=== PATIENT | male | born 1990 | race Caucasian/White ===

== ENCOUNTER 2020-11-19 10:46 | Emergency (ER) | payer OTHER ==
[2020-11-19 10:51] VITALS: BP 137/101
[2020-11-19] MEDS ORDERED: ORPHENADRINE 60 MG/2 ML (NORFLEX) AMP (ED ONLY) IM ONE (11:00)
[2020-11-19] MEDS ORDERED: KETOROLAC 60 MG/2 ML VIAL IM ONE (11:00)
--- NOTE | 2020-11-19 11:15 | Diagnostic Imaging Report ---
Indication: Left-sided low back pain with left leg radiculopathy. Comparison: None. Discussion: Three views lumbosacral spine were obtained. Mild degenerative disc disease noted at L5-S1. Alignment is anatomic. No fracture or dislocation. Soft tissues are unremarkable. Sacroiliac joints are maintained. Impression: 1. Mild L5-S1 degenerative disc disease. Dictated by: Dictated on workstation # [id number]
--- NOTE | 2020-11-19 11:16 | ED Back Pain ---
General Chief Complaint: Back Problems Stated Complaint: LEFT HIP/LEG PAIN | NUMB TOES Nursing Triage Note: left sided lower back pain that radiates down leg. Is having numbness in left toes. Started two days ago Nursing Sepsis Screen: No Definite Risk Source of Information: Patient Exam Limitations: No Limitations, Intoxication History of Present Illness Date Seen by Provider: November 19, 2020 Time Seen by Provider: 10:51 Initial Comments Patient is a 30-year-old male who presents with severe sharp pain radiating below left leg and into the foot. Patient also reports paresthesias in this distribution. Denies motor weakness. No loss of bowel or bladder function. No saddle anesthesia. Denies trauma repetitive strain injury. History of occasional back pain. No medications or therapies taken prior to ED arrival. Location: Lumbar Spine Timing/Duration: 1-2 Days, Other Severity: Moderate Pain/Injury Location: Other Radiation: Lower Legs Modifying Factors: Improves With Movement, Improves With Other Associated Symptoms: other Allergies and Home Medications Allergies Coded Allergies: No Known Drug Allergies (Unverified , 03/24/20) Home Medications Cyclobenzaprine HCl 10 Mg Tablet, 10 MG PO TID Prescribed by: RADHA AVILA on 11/19/20 1124 Methylprednisolone 4 Mg Tab.ds.pk, 4 MG PO UD PER DOSE PACK INSTRUCTIONS Prescribed by: RADHA AVILA on 11/19/20 1124 Tramadol HCl 50 Mg Tablet, 50 MG PO Q8H Prescribed by: RADHA AVILA on 11/19/20 1124 Patient Home Medication List Home Medication List Reviewed: Yes Review of Systems Constitutional: see HPI EENTM: see HPI Respiratory: see HPI Cardiovascular: see HPI Gastrointestinal: see HPI Musculoskeletal: back pain Psychiatric/Neurological: See HPI All Other Systems Reviewed Negative Unless Noted: Yes Past Sxyrwws-Jztnpl-Xjxatq Hx Past Med/Social Hx: Reviewed Nursing Past Med/Soc Hx Patient Social History Alcohol Use: Denies Use Drug of Choice: marijuana Smoking Status: Current Everyday Smoker Type Used: Cigarettes 2nd Hand Smoke Exposure: No Recent Infectious Disease Expo: No Recent Hopitalizations: No Seasonal Allergies Seasonal Allergies: No Past Medical History 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 oz. kg; 31.00 BMI Method: General Appearance: Moderate Distress HEENT: Normal ENT Inspection, Pharynx Normal, Moist Mucous Membranes Cardiovascular: Regular Rate, Rhythm, No Edema Respiratory: Lungs Clear Gastrointestinal: Non Tender, Soft Extremity: Other (Positive SLR on the left.) Neurologic/Psychiatric: Alert, Oriented x3, No Motor/Sensory Deficits, Normal Mood/Affect, systems project manager II-XII Norm as Tested, Other (Patient can walk on heels and balls of feet.) Progress/Results/Core Measures Results/Orders My Orders Orders - RADHA AVILA DO Lumbar Spine 2 Or 3 View (11/19/20 11:00) Ketorolac Injection (Toradol Injection) (11/19/20 11:00) Orphenadrine Inj (Ed Only) (Norflex Inje (11/19/20 11:00) Vital Signs/I&O 11/19/20 10:51 Temp 35.9 Pulse 71 Resp 16 B/P (MAP) 137/101 (113) Pulse Ox 97 Blood Pressure Mean: 113 Departure Communication (Admissions) CT pelvis/lumbar spine: No acute findings per radiology report. Reproducible radicular back pain without neurologic deficit. Symptoms significantly improved with treatment. Impression Primary Impression: Acute lumbar radiculopathy Disposition: HOME, SELF-CARE Condition: Stable Departure-Patient Inst. Referrals: NO,LOCAL PHYSICIAN (PCP/Family) Primary Care Physician Scripts Methylprednisolone (Methylprednisolone Dose Pack) 4 Mg Tab.ds.pk 4 MG PO UD for 6 Days, #21 PKG PER DOSE PACK INSTRUCTIONS Prov: RADHA AVILA DO 11/19/20 Tramadol HCl (Tramadol HCl) 50 Mg Tablet 50 MG PO Q8H, #14 TAB Prov: RADHA AVILA DO 11/19/20 Cyclobenzaprine HCl (Cyclobenzaprine HCl) 10 Mg Tablet 10 MG PO TID, #30 TAB Prov: RADHA AVILA DO 11/19/20 RADHA AVILA DO November 19, 2020 11:16
--- NOTE | 2020-11-19 11:19 | ED Back Pain ---
General Chief Complaint: Back Problems Stated Complaint: LEFT HIP/LEG PAIN | NUMB TOES Nursing Triage Note: left sided lower back pain that radiates down leg. Is having numbness in left toes. Started two days ago Nursing Sepsis Screen: No Definite Risk Source of Information: Patient Exam Limitations: No Limitations History of Present Illness Date Seen by Provider: November 19, 2020 Time Seen by Provider: 10:52 Initial Comments Patient is a 30-year-old male with history of chronic back pain who presents with left lower sacroiliac pain radiating to left leg below the knee towards the foot. Pain is described as sharp and is rated moderate to severe. Pain is worse with palpation and ambulation and partially relieved with rest. Patient describes paresthesias of the lower leg and toes. He denies motor weakness or numbness. No saddle anesthesia or loss of bowel or bladder function. He denies repetitive strain injury or trauma. No other acute symptoms or complaints. No medications or therapies taken prior to ED arrival. Location: Lumbar Spine Timing/Duration: 1 Week Severity: Moderate Pain/Injury Location: Other Radiation: Other Method of Injury: Other Modifying Factors: Improves With Other Associated Symptoms: other Allergies and Home Medications Allergies Coded Allergies: No Known Drug Allergies (Unverified , 03/24/20) Patient Home Medication List Home Medication List Reviewed: Yes Review of Systems Constitutional: see HPI EENTM: see HPI Respiratory: see HPI Cardiovascular: see HPI Gastrointestinal: no symptoms reported Genitourinary: no symptoms reported Musculoskeletal: no symptoms reported Skin: no symptoms reported Psychiatric/Neurological: No Symptoms Reported All Other Systems Reviewed Negative Unless Noted: Yes Past Siefmpy-Hqhmpr-Qwlxxa Hx Past Med/Social Hx: Reviewed Nursing Past Med/Soc Hx Patient Social History Alcohol Use: Denies Use Drug of Choice: marijuana Smoking Status: Current Everyday Smoker Type Used: Cigarettes 2nd Hand Smoke Exposure: No Recent Infectious Disease Expo: No Recent Hopitalizations: No Seasonal Allergies Seasonal Allergies: No Past Medical History 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 oz. kg; 31.00 BMI Method: General Appearance: No Apparent Distress, WD/WN HEENT: PERRL/EOMI, Pharynx Normal Neck: Full Range of Motion, Non Tender, Supple Respiratory: Lungs Clear Back: No Vertebral Tenderness; No CVA Tenderness (L), No CVA Tenderness (R); Other Extremity: Non Tender, No Calf Tenderness Neurologic/Psychiatric: Alert, Oriented x3, No Motor/Sensory Deficits, travel consultant II- XII Norm as Tested, Other (Walks on toes and heels. Positive SLR on left) Progress/Results/Core Measures Results/Orders My Orders Orders - RADHA AVILA DO Lumbar Spine 2 Or 3 View (11/19/20 11:00) Ketorolac Injection (Toradol Injection) (11/19/20 11:00) Orphenadrine Inj (Ed Only) (Norflex Inje (11/19/20 11:00) Vital Signs/I&O 11/19/20 10:51 Temp 35.9 Pulse 71 Resp 16 B/P (MAP) 137/101 (113) Pulse Ox 97 Blood Pressure Mean: 113 Departure Communication (Admissions) XR Lumbar series: No fracture Reproducible radicular lumbar back pain without neurologic deficit. No acute abnormality on imaging studies. Pain addressed with improvement. Will treat supportively with instructions to follow-up with his [place] PCP. Return precautions reviewed. Patient verbalizes understanding agreement discharge instructions prior to departure. Impression Primary Impression: Lumbar radiculopathy Disposition: 20 Condition: Stable Departure-Patient Inst. Decision time for Depature: 11:23 Referrals: NO,LOCAL PHYSICIAN (PCP/Family) Primary Care Physician Patient Instructions: Radiculopathy (DC), Back Muscle Strain (DC) Add. Discharge Instructions: Please avoid strenuous physical activity and heavy lifting. Take tramadol and Flexeril for pain and Medrol Dosepak as directed. Follow-up with your [place] medical provider in 3 to 5 days for reevaluation. Return to the ED if new or worsening symptoms. All discharge instructions reviewed with patient and/or family. Voiced understanding. Scripts Methylprednisolone (Methylprednisolone Dose Pack) 4 Mg Tab.ds.pk 4 MG PO UD for 6 Days, #21 PKG PER DOSE PACK INSTRUCTIONS Prov: RADHA AVILA DO 11/19/20 Tramadol HCl (Tramadol HCl) 50 Mg Tablet 50 MG PO Q8H, #14 TAB Prov: RADHA AVILA DO 11/19/20 Cyclobenzaprine HCl (Cyclobenzaprine HCl) 10 Mg Tablet 10 MG PO TID, #30 TAB Prov: RADHA AVILA DO 11/19/20 RADHA AVILA DO November 19, 2020 11:19
[2020-11-19] MEDS ORDERED: CYCL10TA9 PO (11:24)
[2020-11-19] MEDS ORDERED: TRAM50TA3 PO (11:24)
[2020-11-19] MEDS ORDERED: METH4TAB10 PO (11:24)
== END 2020-11-19 11:27 | disposition home or self-care (01) ==
LOC: EDUNIT# 10:46 → ER FS 10:48
DX: M54.16 Radiculopathy, lumbar region (principal); F17.210 Nicotine dependence, cigarettes, uncomplicated
CPT/HCPCS: 72100

== ENCOUNTER 2021-01-24 10:57 | Emergency (ER) | payer OTHER ==
[~2021-01-24] VITALS: Ht 188 cm; Wt 100.7 kg
[~2021-01-24 10:57] MED LIST: CYCL10TA9 PO; METH4TAB10 PO; TRAM50TA3 PO
[2021-01-24] MEDS ORDERED: ONDANSETRON 4 MG/2 ML (SDV) Z0FRAN IVP STA (11:05)
[2021-01-24] MEDS ORDERED: NS IV 1000 ML 1,000 ML IV STA (11:05)
[2021-01-24 11:17] LABS: HEMATOCRIT 45 % (40-54); LYMPHOCYTES % (AUTO) 25 % (12-44); MEAN CORPUSCULAR HEMOGLOBIN 31 PG (25-34); MEAN CORPUSCULAR HGB CONC 34 G/DL (32-36); MEAN CORPUSCULAR VOLUME 92 FL (80-99); MEAN PLATELET VOLUME 10.9 FL (7.4-10.4); NEUTROPHILS % (AUTO) 65 % (42-75); PLATELET COUNT 217 10^3/uL (130-400); WHITE BLOOD COUNT 14.5 10^3/uL (4.3-11.0)
[2021-01-24 11:18] LABS: BASOPHILS # (AUTO) 0.1 10^3/uL (0.0-0.1); BASOPHILS % (AUTO) 1 % (0-10); EOSINOPHILS # (AUTO) 0.1 10^3/uL (0.0-0.3); EOSINOPHILS % (AUTO) 0 % (0-10); LYMPHOCYTES # (AUTO) 3.6 X 10^3 (1.0-4.0); MONOCYTES # (AUTO) 1.3 X 10^3 (0.0-1.0); MONOCYTES % (AUTO) 9 % (0-12); NEUTROPHILS # (AUTO) 9.4 X 10^3 (1.8-7.8)
--- NOTE | 2021-01-24 11:19 | ED General ---
General Chief Complaint: General Problems/Pain Stated Complaint: DIZZINESS; DEHYDRATION Source of Information: Patient, EMS History of Present Illness Date Seen by Provider: Jan 24, 2021 Time Seen by Provider: 10:57 Initial Comments 30-year-old male presenting by EMS due to complaints of feeling dehydrated. He states that he was outside watching the sunrise and then stayed outside in the park. He is taking the steroids and medicine that states he should not have a lot of sun exposure. He felt like he got too much sun exposure today. He had tried drinking some water and had vomited after that. He had only one episode of vomiting. He denies any diarrhea. He denies any abdominal pain. He has some mild lightheaded sensation. He denies any pain or burning with urination. He called 911 after he had the episode of vomiting. He has had 3 force of the back of normal saline by EMS by the time he arrived in the ED. He states he feels like he needs to urinate on arrival to the ED. Associated Systoms: No Chest Pain, No Cough, No Diaphoresis, No Fever/Chills, No Headaches, No Loss of Appetite, No Malaise; Nausea/Vomiting; No Rash, No Seizure, No Shortness of Air, No Syncope, No Weakness Allergies and Home Medications Allergies Coded Allergies: No Known Drug Allergies (Unverified , 03/24/20) Home Medications Cyclobenzaprine HCl 10 Mg Tablet, 10 MG PO TID Prescribed by: RADHA AVILA on 11/19/20 1124 Methylprednisolone 4 Mg Tab.ds.pk, 4 MG PO UD PER DOSE PACK INSTRUCTIONS Prescribed by: RADHA AVILA on 11/19/20 1124 Ondansetron 4 Mg Tab.rapdis, 4 MG PO Q6H PRN for NAUSEA/VOMITING Prescribed by: VREO VINCENT on 01/24/21 1204 Tramadol HCl 50 Mg Tablet, 50 MG PO Q8H Prescribed by: RADHA AVILA on 11/19/20 1124 Patient Home Medication List Home Medication List Reviewed: Yes Review of Systems Review of Systems Constitutional: No chills, No fever EENTM: no symptoms reported Respiratory: no symptoms reported Cardiovascular: no symptoms reported Gastrointestinal: see HPI Genitourinary: no symptoms reported Musculoskeletal: back pain (chronic sciatica symptoms) Skin: no symptoms reported Psychiatric/Neurological: Anxiety Past Nkddhtv-Umdvfs-Qrbczs Hx Seasonal Allergies Seasonal Allergies: No Past Medical History 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 oz. kg; 31.00 BMI Method: General Appearance: No Apparent Distress, WD/WN HEENT: PERRL/EOMI, Pharynx Normal Neck: Full Range of Motion, Normal Inspection, Non Tender, Supple Respiratory: Chest Non Tender, Lungs Clear, Normal Breath Sounds Cardiovascular: Regular Rate, Rhythm, No Edema, Normal Peripheral Pulses Gastrointestinal: Normal Bowel Sounds, No Pulsatile Mass, Non Tender, Soft Rectal: Deferred Extremity: Normal Capillary Refill, Normal Inspection, No Pedal Edema Neurologic/Psychiatric: Alert, Oriented x3, inspector hairspring II-XII Norm as Tested Skin: Normal Color, Warm/Dry Progress/Results/Core Measures Suspected Sepsis SIRS Temperature: Pulse: Respiratory Rate: Laboratory Tests 01/24/21 11:05: White Blood Count 14.5H Blood Pressure / Mean: Laboratory Tests 01/24/21 11:05: Creatinine 1.02, Platelet Count 217, Total Bilirubin 0.2 Results/Orders Lab Results Laboratory Tests Test 01/24/21 11:05 Range/Units White Blood Count 14.5 H 4.3-11.0 10^3/uL Red Blood Count 4.87 4.35-5.85 10^6/uL Hemoglobin 15.0 13.3-17.7 G/DL Hematocrit 45 40-54 % Mean Corpuscular Volume 92 80-99 FL Mean Corpuscular Hemoglobin 31 25-34 PG Mean Corpuscular Hemoglobin Concent 34 32-36 G/DL Red Cell Distribution Width 12.9 10.0-14.5 % Platelet Count 217 130-400 10^3/uL Mean Platelet Volume 10.9 H 7.4-10.4 FL Immature Granulocyte % (Auto) 1 % Neutrophils (%) (Auto) 65 42-75 % Lymphocytes (%) (Auto) 25 12-44 % Monocytes (%) (Auto) 9 0-12 % Eosinophils (%) (Auto) 0 0-10 % Basophils (%) (Auto) 1 0-10 % Neutrophils # (Auto) 9.4 H 1.8-7.8 X 10^3 Lymphocytes # (Auto) 3.6 1.0-4.0 X 10^3 Monocytes # (Auto) 1.3 H 0.0-1.0 X 10^3 Eosinophils # (Auto) 0.1 0.0-0.3 10^3/uL Basophils # (Auto) 0.1 0.0-0.1 10^3/uL Immature Granulocyte # (Auto) 0.1 0.0-0.1 10^3/uL Neutrophils % (Manual) 56 % Lymphocytes % (Manual) 37 % Monocytes % (Manual) 7 % Eosinophils % (Manual) 0 % Basophils % (Manual) 0 % Band Neutrophils 0 % Sodium Level 140 135-145 MMOL/L Potassium Level 3.5 L 3.6-5.0 MMOL/L Chloride Level 102 98-107 MMOL/L Carbon Dioxide Level 27 21-32 MMOL/L Anion Gap 11 5-14 MMOL/L Blood Urea Nitrogen 18 7-18 MG/DL Creatinine 1.02 0.60-1.30 MG/DL Estimat Glomerular Filtration Rate > 60 BUN/Creatinine Ratio 18 Glucose Level 95 70-105 MG/DL Calcium Level 8.8 8.5-10.1 MG/DL Corrected Calcium 8.6 8.5-10.1 MG/DL Total Bilirubin 0.2 0.1-1.0 MG/DL Aspartate Amino Transf (AST/SGOT) 18 5-34 U/L Alanine Aminotransferase (ALT/SGPT) 33 0-55 U/L Alkaline Phosphatase 80 40-136 U/L Total Protein 6.7 6.4-8.2 GM/DL Albumin 4.3 3.2-4.5 GM/DL Lipase 32 8-78 U/L My Orders Orders - VERO VINCENT MD Comprehensive Metabolic Panel (01/24/21 11:05) Lipase (01/24/21 11:05) Ed Iv/Invasive Line Start (01/24/21 11:05) Cbc With Automated Diff (01/24/21 11:05) Ns Iv 1000 Ml (Sodium Chloride 0.9%) (01/24/21 11:05) Ondansetron Injection (Zofran Injectio (01/24/21 11:05) Manual Differential (01/24/21 11:05) Promethazine Injection (Phenergan Injec (01/24/21 11:56) Vital Signs/I&O 01/24/21 01/24/21 11:00 12:45 Temp 36.6 36.3 Pulse 74 62 Resp 18 18 B/P (MAP) 149/85 (106) 107/52 (106) Pulse Ox 99 98 O2 Delivery Room Air Room Air Capillary Refill : Progress Note #1: Progress Note check basic labs and urinalysis. Give IV fluids for hydration, Zofran for nausea. Progress Note #2: Progress Note Labs did not show any acute significant normality on his CBC or chemistry. He urinated on arrival but then reported out rather than have us tested. His nausea was still present despite the Zofran so a dose of Phenergan was placed in his IV fluids as they finished infusing. Discharged to home and encouraged to push fluids and rest and stay out of the sun and heat Departure Impression Primary Impression: Heat exposure Qualified Codes: T67.9XXA - Effect of heat and light, unspecified, initial encounter Additional Impression: Nausea & vomiting Qualified Codes: R11.14 - Bilious vomiting Disposition: 01 HOME, SELF-CARE Condition: Stable Departure-Patient Inst. Decision time for Depature: 12:04 Referrals: NO,LOCAL PHYSICIAN (PCP/Family) Primary Care Physician Patient Instructions: Heat Illness ED, Nausea and Vomiting, Adult ED Add. Discharge Instructions: Stay out of the sun and heat. Keep sipping on fluids and try to stay well hydrated. Follow up with your regular providers for continued concerns. All discharge instructions reviewed with patient and/or family. Voiced understanding. Scripts Ondansetron (Ondansetron Odt) 4 Mg Tab.rapdis 4 MG PO Q6H PRN for NAUSEA/VOMITING for 2 Days, #8 TAB 0 Refills Prov: VERO VINCENT MD 01/24/21 VERO VINCENT MD Jan 24, 2021 11:19
[2021-01-24 11:35] LABS: BAND NEUTROPHILS 0 %; BASOPHILS % (MANUAL) 0 %; EOSINOPHILS % (MANUAL) 0 %; LYMPHOCYTES % (MANUAL) 37 %; MONOCYTES % (MANUAL) 7 %; NEUTROPHILS % (MANUAL) 56 %
[2021-01-24 11:40] LABS: ALANINE AMINOTRANSFERASE 33 U/L (0-55); ALBUMIN 4.3 GM/DL (3.2-4.5); ALKALINE PHOSPHATASE 80 U/L (40-136); BILIRUBIN,TOTAL 0.2 MG/DL (0.1-1.0); BUN/CREATININE RATIO 18; CALCIUM 8.8 MG/DL (8.5-10.1); CARBON DIOXIDE 27 MMOL/L (21-32); CHLORIDE 102 MMOL/L (98-107); CREATININE SERUM 1.02 MG/DL (0.60-1.30); GFR ESTIMATED > 60; GLUCOSE 95 MG/DL (70-105); LIPASE 32 U/L (8-78); POTASSIUM 3.5 MMOL/L (3.6-5.0); SODIUM 140 MMOL/L (135-145); TOTAL PROTEIN 6.7 GM/DL (6.4-8.2)
[2021-01-24] MEDS ORDERED: PROMETHAZINE INJ 25 MG/ML (PHENERGAN) AMP IVP STA (11:56)
[2021-01-24] MEDS ORDERED: ONDA4TAB11 PO (12:04)
[2021-01-24 12:45] VITALS: BP 107/52
== END 2021-01-24 12:45 | disposition home or self-care (01) ==
LOC: EDUNIT# 10:57 → ER FS 10:59
DX: T67.5XXA Heat exhaustion, unspecified, initial encounter (principal); Z79.52 Long term (current) use of systemic steroids
CPT/HCPCS: 36415; 80053; 83690; 85007; 85027